=== PATIENT | female | born 1935 | race Caucasian/White ===

== ENCOUNTER 2017-02-28 17:24 | Emergency (ER) | payer MEDICARE, OTHER ==
[2017-02-28 17:58] VITALS: BP 134/76
--- NOTE | 2017-02-28 18:30 | EDM.PDOC ---
ED HPI GENERAL MEDICAL PROBLEM - General Chief Complaint: Genitourinary Problem Stated Complaint: BURNING WHEN URINATING; URGENCY Time Seen by Provider: 02/28/17 18:15 Source of Information: Reports: Patient History Limitations: Reports: No Limitations - History of Present Illness INITIAL COMMENTS - FREE TEXT/NARRATIVE: Hellen is an othewise healthy 81 year old female who presents to the ED today with c/o urinary frequency, urgency and dysuria since last night. Patient driving here from [place] for vacation. She denies any nausea/vomiting/fever/ flank pain/chills. Has not been drinking as much water as she normally does secondary to travel. Onset: Today, Sudden Bladder Pain Score (Numeric/FACES): 2 - Related Data Allergies Allergy/AdvReac Type Severity Reaction Status Date / Time No Known Allergies Allergy Verified 02/28/17 17:57 Home Meds: Home Meds Acetaminophen/HYDROcodone [[place] 325-5 MG] 1 - 2 tab PO Q6H PRN 02/28/17 [ History] Aspirin [Halfprin] 1 tab PO DAILY 02/28/17 [History] Benazepril [Lotensin] 1 tab PO DAILY 02/28/17 [History] Cholecalciferol (Vitamin D3) [Vitamin D3] 1 cap PO DAILY 02/28/17 [History] Diltiazem [Cardizem CD] 1 tab PO DAILY 02/28/17 [History] Levothyroxine 1 tab PO DAILY 02/28/17 [History] Triamterene/Hydrochlorothiazid [Triamterene-HCTZ 37.5-25 MG] 1 tab PO DAILY [History] atorvaSTATin [Lipitor] 1 tab PO DAILY 02/28/17 [History] Past Medical History Cardiovascular History: Reports: High Cholesterol, Hypertension Musculoskeletal History: Reports: Back Pain, Chronic Neurological History: Reports: Vertigo Endocrine/Metabolic History: Reports: Hypothyroidism Oncologic (Cancer) History: Reports: Breast - Past Surgical History HEENT Surgical History: Reports: Tonsillectomy Oncologic Surgical History: Reports: Lumpectomy Social & Family History - Tobacco Use Smoking Status *Q: Never Smoker - Recreational Drug Use Recreational Drug Use: No ED ROS GENERAL - Review of Systems Review Of Systems: ROS reveals no pertinent complaints other than HPI. ED EXAM, RENAL/ - Physical Exam Exam: See Below Exam Limited By: No Limitations General Appearance: Alert, WD/WN, No Apparent Distress Respiratory/Chest: No Respiratory Distress Cardiovascular: Regular Rate, Rhythm, No Murmur GI/Abdominal: Normal Bowel Sounds, Soft, Non-Tender (Female) Exam: Other (No CVA tenderness on exam) Neurological: Alert, Oriented, CN II-XII Intact Psychiatric: Normal Affect, Normal Mood Skin Exam: Warm, Dry, Intact Course - Vital Signs Text/Narrative:: Hellen is an otherwise healthy 81 year old female who presents to the ED today with c/o UTI symptoms. Please refer to HPI and focused exam. Patient on exam is well hydrated, she is non-toxic appearing. UA obtained and returns positive for UTI with 20-30 WBC's and moderate leukocyte esterase. UC pending. Patient has not been on recent antibiotics. Will start her on a 7 day course of Bactrim pending UC results. Hydration encouraged, reasons to return to the ED discussed in detail. Patient agreeable and discharged in stable condition. Last Recorded V/S: Last Vital Signs Temp 35.7 C 02/28/17 17:54 Pulse 68 02/28/17 17:54 Resp 16 02/28/17 17:54 BP 134/76 02/28/17 17:54 Pulse Ox 94 L 02/28/17 17:54 - Orders/Labs/Meds Orders: Active Orders 24 hr Category Date Time Status CULTURE URINE [RM] Stat Lab 02/28/17 18:10 Received Labs: Laboratory Tests 02/28/17 Range/Units 18:10 Urine Color Yellow Urine Appearance Slightly cloudy Urine pH 6.0 (4.5-8.0) Ur Specific [place] 1.015 (1.008-1.030) Urine Protein Negative (NEGATIVE) mg/dL Urine Glucose (UA) Normal (NEGATIVE) mg/dL Urine Ketones Negative (NEGATIVE) mg/dL Urine Occult Blood Negative (NEGATIVE) Urine Nitrite Negative (NEGATIVE) Urine Bilirubin Negative (NEGATIVE) Urine Urobilinogen Normal (NORMAL) mg/dL Ur Leukocyte Esterase Moderate (NEGATIVE) Urine RBC 0-5 (0-5) Urine WBC 20-30 H (0-5) Ur Epithelial Cells Few Amorphous Sediment Not seen Urine Bacteria Moderate Urine Mucus Not seen Departure - Departure Time of Disposition: 19:00 Disposition: Home, Self-Care 01 Condition: Good Clinical Impression: UTI, Urinary tract infectious disease - Discharge Information Instructions: Urinary Tract Infection, Adult, [id number] Referrals: PCP,None [Primary Care Provider] - Forms: ED Department Discharge Additional Instructions: Take Bactrim as prescribed for 7 days. Drink plenty of water Return with any worsening symptoms, Enjoy your vacation! - My Orders Last 24 Hours: My Active Orders 02/28/17 18:10 CULTURE URINE [RM] Stat - Assessment/Plan Last 24 Hours: My Active Orders 02/28/17 18:10 CULTURE URINE [RM] Stat
== END 2017-02-28 19:06 | disposition home or self-care (01) ==
LOC: JP.ED 17:24
DX: N39.0 Urinary tract infection, site not specified (principal); I10 Essential (primary) hypertension; E78.00 Pure hypercholesterolemia, unspecified; E03.9 Hypothyroidism, unspecified; Z98.890 Other specified postprocedural states; Z85.3 Personal history of malignant neoplasm of breast; Z79.82 Long term (current) use of aspirin; Z79.899 Other long term (current) drug therapy
CPT/HCPCS: 81001; 87086; 99284